=== PATIENT | male | born 2000 | race Two or more races ===

== ENCOUNTER 2020-06-26 21:55 | Emergency (ER) | payer MEDICAID, OTHER ==
[~2020-06-26] VITALS: Ht 188 cm; Wt 106.6 kg
[2020-06-26 22:29] VITALS: BP 152/83
== END 2020-06-27 03:15 | disposition left against medical advice (07) ==
LOC: ER 21:55
DX: K08.89 Other specified disorders of teeth and supporting structures (principal); Z53.21 Procedure and treatment not carried out due to patient leaving prior to being seen by health care provider
CPT/HCPCS: 70486

== ENCOUNTER 2022-03-27 20:02 | Emergency (ER) | payer MEDICAID ==
[~2022-03-27] VITALS: Ht 190.5 cm; Wt 106.0 kg
[2022-03-27 20:53] VITALS: BP 137/94
[2022-03-28] MEDS ORDERED: AMOX-277 PO (00:53)
[2022-03-28] MEDS ORDERED: IBUP800T27 PO (00:53)
[2022-03-28] MEDS ORDERED: BENZOCAINE (DENTAL) 20 % SPRAY 60ML MT ONE (01:00)
== END 2022-03-28 01:17 | disposition home or self-care (01) ==
LOC: ER 20:04
DX: S02.5XXA Fracture of tooth (traumatic), initial encounter for closed fracture (principal); K04.7 Periapical abscess without sinus; X58.XXXA Exposure to other specified factors, initial encounter; Y93.89 Activity, other specified; Y92.89 Other specified places as the place of occurrence of the external cause; Y99.8 Other external cause status

== ENCOUNTER 2023-02-03 09:13 | Emergency (ER) | payer MEDICAID ==
[~2023-02-03] VITALS: Ht 188 cm; Wt 115.4 kg
[~2023-02-03 09:13] MED LIST: AMOX875T4 PO; IBUP-1456 PO
[2023-02-03 10:15] VITALS: BP 127/67; PULSE 60; RESP 18; TEMP 97.7; O2SAT 98
[2023-02-03] MEDS ORDERED: LIDOCAINE 1% HCL (LOCAL ANESTH.) INJ 20ML MDV IJ ONE (10:30)
[2023-02-03] MEDS ORDERED: CEPH500C PO (10:34)
== END 2023-02-03 10:46 | disposition home or self-care (01) ==
LOC: ER 09:13
DX: T16.1XXA Foreign body in right ear, initial encounter (principal); Z79.899 Other long term (current) drug therapy; X58.XXXA Exposure to other specified factors, initial encounter; Y93.89 Activity, other specified; Y92.89 Other specified places as the place of occurrence of the external cause; Y99.8 Other external cause status